=== PATIENT | female | born 1985 ===

== ENCOUNTER 2025-01-16 10:11 | Outpatient (CLI) | payer OTHER, SELFPAY ==
[2025-01-16 13:15] LABS: Basophils Absolute Auto 0.05 K/uL (0.00-0.30); Basophils Percent Auto 0.8 % (0.0-3.0); Eosinophils Absolute Auto 0.12 K/uL (0.00-0.50); Eosinophils Percent Auto 1.8 % (0.0-7.0); Hematocrit* 36.3 % (33.0-51.0); Lymphocytes Absolute Auto 2.12 K/uL (0.90-2.90); Lymphocytes Percent Auto 32.7 % (20-44); Mean Corpuscular HGB Conc 33 gm/dL (32-36); Mean Corpuscular Hemoglobin 29 pg (26-34); Mean Corpuscular Volume 89 fL (80-100); Neutrophils Absolute Auto 3.81 K/uL (1.7-7.0); Neutrophils Percent Auto 58.7 % (42.0-72.0); Platelet Count* 271 K/uL (140-440); RDW Coefficient of Variation % 12.3 % (11.5-15.5); Red Blood Count* 4.08 m/uL (4.00-5.20); White Blood Count* 6.49 K/uL (4.50-11.00)
[2025-01-16 13:17] LABS: Slide Review Reflex No
[2025-01-16 13:26] LABS: Ur HCG Qualitative* Negative (Negative)
[2025-01-16 13:44] LABS: Thyroid Stimulating Hormone* 0.604 uIU/mL (0.270-4.20)
[2025-01-16 14:41] LABS: Chlamydia DNA Amplified* NOT DETECTED (No Detected); GC DNA Amplified* NOT DETECTED (No Detected)
== END 2025-01-16 10:12 | disposition home or self-care (01) ==
LOC: NPINS 10:12
PROVIDERS: Visit Provider Nurse Practitioner Psychiatric/Mental Health
DX: N93.9 Abnormal uterine and vaginal bleeding, unspecified (principal)
CPT/HCPCS: 81025; 84443; 85025; 87491; 87591